=== PATIENT | female | born 1990 | race African-American/Black ===

== ENCOUNTER 2019-07-10 16:40 | Inpatient (IN) | payer MEDICAID ==
[~2019-07-10] VITALS: Ht 149.9 cm; Wt 57.7 kg
[2019-07-10] MEDS ORDERED: QUET200T PO (17:02)
[2019-07-10] MEDS ORDERED: SERT100T12 PO (17:02)
[2019-07-10] MEDS ORDERED: HALO5TAB2 PO (17:02)
[2019-07-10 17:16] LABS: BASOPHILS % (AUTO) 1.2 % (0.0-2.0); EOSINOPHILS % (AUTO) 1.4 % (1.0-6.0); HEMOGLOBIN 14.2 g/dL (12.0-16.0); LYMPHOCYTES # (AUTO) 1.8 K/uL (1.0-4.8); LYMPHOCYTES % (AUTO) 30.6 % (22.0-44.0); MEAN CORPUSCULAR HEMOGLOBIN 31.8 pg (26.0-34.0); MEAN CORPUSCULAR HGB CONC 34.7 G/dL (31.0-37.0); MEAN CORPUSCULAR VOLUME 92 fL (80-100); MONOCYTES # (AUTO) 0.4 K/uL (0.1-1.0); MONOCYTES % (AUTO) 6.2 % (2.0-9.0); NEUTROPHILS # (AUTO) 3.5 K/uL (1.8-7.7); NEUTROPHILS % (AUTO) 60.6 % (40.0-70.0); PLATELET COUNT (AUTO) 264 K/uL (150-450); RED BLOOD CELL COUNT(AUTO) 4.46 MIL/uL (4.00-5.20); RED CELL DISTRIBUTION WIDTH 13.4 % (11.5-14.5)
[2019-07-10 17:40] LABS: ANION GAP 14 mmol/L (8-16); CALCIUM, TOTAL 8.8 mg/dL (8.8-10.5); CARBON DIOXIDE 22 mmol/L (22-29); CHLORIDE 101 mmol/L (98-107); GLOMERULAR FILTR. RATE CALC > 60 mL/min (>60); GLUCOSE,RANDOM 99 mg/dL (70-110); SODIUM SERUM 137 mmol/L (136-145); UREA NITROGEN, BLOOD 4 mg/dL (7-18)
[2019-07-10 17:44] LABS: SALICYLATE 2.4 mg/dL (2.8-20.0)
[2019-07-10 17:45] LABS: ALANINE AMINOTRANSFERASE 15 U/L (12-78); ALBUMIN 3.7 g/dL (3.4-5.0); ALKALINE PHOSPHATASE 84 U/L (46-116); ASPARTATE AMINOTRANSFERASE 18 U/L (15-37); BILIRUBIN,TOTAL 0.3 mg/dL (0.1-1.0); HCG,QUANTITATIVE < 1 mIU/mL (0-6); TOTAL PROTEIN, SERUM 7.4 g/dL (6.4-8.2)
[2019-07-10 17:49] LABS: ACETAMINOPHEN < 2 mcg/mL (10-30)
[2019-07-10] MEDS ORDERED: POTASSIUM CHLORIDE 20 MEQ ER TABLET PO ONE (18:15)
[2019-07-10] MEDS ORDERED: ZOLPIDEM TARTRATE 10 MG TABLET PO PRN (19:45)
[2019-07-10 22:09] VITALS: BP 117/73
[2019-07-10] MEDS ORDERED: INFLUENZA VIRUS VACCINE QVS 2019-20 (3YR+)/PF 60 MCG/0.5 ML SYRINGE IM ONE (22:15)
[2019-07-11 07:58] LABS: CHOL/HDL RATIO 2.1 (3.9-5.7)
[2019-07-11] MEDS: NICOTINE 14 MG/24 HOUR PATCH TD SCH (09:30)
[2019-07-11 10:07] VITALS: BP 104/60
[2019-07-11 16:31] VITALS: BP 108/74
[2019-07-11] MEDS: HALOPERIDOL 5 MG TABLET PO PRN (19:56)
[2019-07-11] MEDS: LORazepam 2 MG TABLET PO PRN (19:56)
[2019-07-11] MEDS ORDERED: PARoxetine HCL 20 MG TABLET PO SCH (21:00)
[2019-07-11] MEDS: QUEtiapine FUMARATE 200 MG TABLET PO SCH (21:29)
[2019-07-11] MEDS: PRAZOSIN HCL 1 MG CAPSULE PO SCH (21:29)
[2019-07-12 09:14] VITALS: BP 99/62
[2019-07-12] MEDS: NICOTINE 14 MG/24 HOUR PATCH TD SCH (09:40)
[2019-07-12] MEDS: SERTRALINE HCL 100 MG TABLET PO SCH (09:40)
[2019-07-12] MEDS: PRAZOSIN HCL 1 MG CAPSULE PO SCH (20:12)
[2019-07-12] MEDS: QUEtiapine FUMARATE 200 MG TABLET PO SCH (20:12)
[2019-07-12 21:09] VITALS: BP 100/60
[2019-07-12] MEDS: LORazepam 2 MG TABLET PO PRN (22:14)
[2019-07-12] MEDS: HALOPERIDOL 5 MG TABLET PO PRN (22:14)
[2019-07-13 08:50] VITALS: BP 94/59
[2019-07-13] MEDS: SERTRALINE HCL 100 MG TABLET PO SCH (09:37)
[2019-07-13] MEDS: NICOTINE 14 MG/24 HOUR PATCH TD SCH (09:38)
[2019-07-13] MEDS: QUEtiapine FUMARATE 200 MG TABLET PO SCH (20:58)
[2019-07-13] MEDS: PRAZOSIN HCL 1 MG CAPSULE PO SCH (20:59)
[2019-07-13 21:36] VITALS: BP 102/47
[2019-07-14 08:50] VITALS: BP 92/58
[2019-07-14] MEDS: NICOTINE 14 MG/24 HOUR PATCH TD SCH (09:03)
[2019-07-14] MEDS: SERTRALINE HCL 100 MG TABLET PO SCH (09:03)
[2019-07-14] MEDS: OMEPRAZOLE 20 MG CAPSULE PO SCH (10:29)
[2019-07-14] MEDS: LORazepam 2 MG TABLET PO PRN (13:45)
[2019-07-14] MEDS: HALOPERIDOL 5 MG TABLET PO PRN (13:45)
[2019-07-14 16:45] VITALS: BP 105/65
[2019-07-14] MEDS: QUEtiapine FUMARATE 200 MG TABLET PO SCH (21:27)
[2019-07-14] MEDS: PRAZOSIN HCL 1 MG CAPSULE PO SCH (21:27)
[2019-07-15 08:48] VITALS: BP 97/66
[2019-07-15] MEDS: PRAZOSIN HCL 1 MG CAPSULE PO SCH (09:46)
[2019-07-15] MEDS: OMEPRAZOLE 20 MG CAPSULE PO SCH (09:46)
[2019-07-15] MEDS: SERTRALINE HCL 100 MG TABLET PO SCH (09:46)
[2019-07-15] MEDS: NICOTINE 21 MG/24 HOUR PATCH TD SCH (09:49)
[2019-07-15] MEDS: HALOPERIDOL 5 MG TABLET PO PRN (10:21)
[2019-07-15] MEDS: LORazepam 2 MG TABLET PO PRN (10:22)
[2019-07-15 18:45] VITALS: BP 93/67
[2019-07-15] MEDS: QUEtiapine FUMARATE 200 MG TABLET PO SCH (20:37)
[2019-07-16 08:47] VITALS: BP 137/85
[2019-07-16] MEDS: SERTRALINE HCL 100 MG TABLET PO SCH (10:24)
[2019-07-16] MEDS: NICOTINE 21 MG/24 HOUR PATCH TD SCH (10:24)
[2019-07-16] MEDS: OMEPRAZOLE 20 MG CAPSULE PO SCH (10:24)
[2019-07-16] MEDS: LORazepam 2 MG TABLET PO PRN (12:55)
[2019-07-16 16:00] VITALS: BP 122/74
[2019-07-16] MEDS: HALOPERIDOL 5 MG TABLET PO PRN (16:02)
[2019-07-16] MEDS: QUEtiapine FUMARATE 200 MG TABLET PO SCH (20:31)
[2019-07-16] MEDS: PRAZOSIN HCL 1 MG CAPSULE PO SCH (20:31)
[2019-07-17 04:38] VITALS: BP 121/69
[2019-07-17 06:39] VITALS: BP 117/77
[2019-07-17] MEDS: LORazepam 2 MG TABLET PO PRN (06:39)
[2019-07-17] MEDS: HALOPERIDOL 5 MG TABLET PO PRN (06:40)
[2019-07-17] MEDS: OMEPRAZOLE 20 MG CAPSULE PO SCH (08:44)
[2019-07-17] MEDS: NICOTINE 21 MG/24 HOUR PATCH TD SCH (08:44)
[2019-07-17] MEDS: SERTRALINE HCL 100 MG TABLET PO SCH (08:45)
[2019-07-17 09:28] VITALS: BP 113/83
[2019-07-17] MEDS ORDERED: PRAZ1 PO (09:28)
== END 2019-07-17 11:45 | disposition home or self-care (01) | DRG 885 ==
LOC: EMS 16:40 → 3EI 21:00 → EDBD 21:00 → EMS 21:41
PROVIDERS: ADMIT Psychiatry & Neurology Psychiatry; ATTEND Psychiatry & Neurology Psychiatry
DX: F31.30 Bipolar disorder, current episode depressed, mild or moderate severity, unspecified (principal); E87.6 Hypokalemia; F10.10 Alcohol abuse, uncomplicated; Z71.41 Alcohol abuse counseling and surveillance of alcoholic; F15.90 Other stimulant use, unspecified, uncomplicated; F25.9 Schizoaffective disorder, unspecified; F41.9 Anxiety disorder, unspecified; Z91.19 Patient's noncompliance with other medical treatment and regimen; T50.902A Poisoning by unspecified drugs, medicaments and biological substances, intentional self-harm, initial encounter; Z28.21 Immunization not carried out because of patient refusal
CPT/HCPCS: 93005; G0480; G0481

== ENCOUNTER 2019-08-25 10:55 | Emergency (ER) | payer MEDICAID, OTHER ==
[~2019-08-25] VITALS: Ht 152.4 cm; Wt 59.1 kg
[~2019-08-25 10:55] MED LIST: PRAZ1 PO; QUET200T PO; SERT100T12 PO
[2019-08-25] MEDS ORDERED: ALBUTEROL SULFATE 2.5 MG/0.5 ML NEB SOLUTION NEB ONE (12:15)
[2019-08-25] MEDS ORDERED: IPRATROPIUM BROMIDE 0.5 MG/2.5 ML NEB SOLUTION NEB ONE (12:15)
[2019-08-25] MEDS ORDERED: ONDANSETRON HCL 4 MG TABLET PO ONE (12:30)
[2019-08-25] MEDS ORDERED: ACETAMINOPHEN 500 MG TABLET PO ONE (12:30)
[2019-08-25 14:07] LABS: INFLUENZA TYPE A NEGATIVE FOR TYPE A (NEGATIVE); INFLUENZA TYPE B NEGATIVE FOR TYPE B (NEGATIVE)
[2019-08-25 14:52] VITALS: BP 115/58
== END 2019-08-25 14:54 | disposition home or self-care (01) ==
LOC: EMS 10:57
DX: J06.9 Acute upper respiratory infection, unspecified (principal); J45.909 Unspecified asthma, uncomplicated; F31.9 Bipolar disorder, unspecified; F12.90 Cannabis use, unspecified, uncomplicated; F15.90 Other stimulant use, unspecified, uncomplicated; Z20.828 Contact with and (suspected) exposure to other viral communicable diseases; Z79.899 Other long term (current) drug therapy; Z88.0 Allergy status to penicillin; Z88.8 Allergy status to other drugs, medicaments and biological substances
CPT/HCPCS: 87635; 87804; 94640; 99283; Q0162

== ENCOUNTER 2019-09-18 10:19 | Emergency (ER) | payer OTHER ==
[~2019-09-18] VITALS: Ht 149.9 cm; Wt 61.4 kg
[2019-09-18] MEDS ORDERED: HALO2 PO (10:29)
[2019-09-18] MEDS ORDERED: ACETAMINOPHEN 500 MG TABLET PO ONE (11:00)
[2019-09-18 11:24] VITALS: BP 103/71
== END 2019-09-18 11:41 | disposition home or self-care (01) ==
LOC: EMS 10:20
DX: R07.89 Other chest pain (principal); F31.9 Bipolar disorder, unspecified; F41.9 Anxiety disorder, unspecified; J45.909 Unspecified asthma, uncomplicated; F12.90 Cannabis use, unspecified, uncomplicated; F15.90 Other stimulant use, unspecified, uncomplicated; F17.210 Nicotine dependence, cigarettes, uncomplicated; Z88.0 Allergy status to penicillin; Z88.1 Allergy status to other antibiotic agents; Z91.018 Allergy to other foods; Z79.899 Other long term (current) drug therapy

== ENCOUNTER 2021-04-12 22:18 | Inpatient (IN) | payer MEDICAID, OTHER ==
[~2021-04-12] VITALS: Ht 149.9 cm; Wt 66.2 kg
[~2021-04-12 22:18] MED LIST changes: +HALO2 PO; -PRAZ1 PO; +SERT-162 PO; -SERT100T12 PO
[2021-04-13] MEDS ORDERED: LAMO25TA25 PO (00:04)
[2021-04-13] MEDS ORDERED: HALO10 PO (00:06)
[2021-04-13] MEDS ORDERED: TRAZ150T80 PO (00:06)
[2021-04-13] MEDS ORDERED: OLANZapine 5 MG RAPDIS TABLET PO PRN (00:15)
[2021-04-13] MEDS ORDERED: ZOLPIDEM TARTRATE 10 MG TABLET PO PRN (00:15)
[2021-04-13 01:47] LABS: BASOPHILS % (AUTO) 1.1 % (0.0-2.0); EOSINOPHILS % (AUTO) 4.6 % (1.0-6.0); HEMATOCRIT 39.3 % (36-46); HEMOGLOBIN 13.5 g/dL (12.0-16.0); LYMPHOCYTES # (AUTO) 2.4 K/uL (1.0-4.8); LYMPHOCYTES % (AUTO) 37.3 % (22.0-44.0); MEAN CORPUSCULAR HEMOGLOBIN 31.1 pg (26.0-34.0); MEAN CORPUSCULAR HGB CONC 34.3 G/dL (31.0-37.0); MEAN CORPUSCULAR VOLUME 91 fL (80-100); MONOCYTES # (AUTO) 0.5 K/uL (0.1-1.0); MONOCYTES % (AUTO) 7.6 % (2.0-9.0); NEUTROPHILS # (AUTO) 3.2 K/uL (1.8-7.7); NEUTROPHILS % (AUTO) 49.4 % (40.0-70.0); PLATELET COUNT (AUTO) 221 K/uL (150-450); RED BLOOD CELL COUNT(AUTO) 4.33 MIL/uL (4.00-5.20)
[2021-04-13 01:54] LABS: ANION GAP 7 mmol/L (8-16); CALCIUM, TOTAL 8.8 mg/dL (8.8-10.5); CARBON DIOXIDE 24 mmol/L (22-29); CHLORIDE 108 mmol/L (98-107); CREATININE 0.87 mg/dL (0.60-1.30); GLOMERULAR FILTR. RATE CALC > 60 mL/min (>60); GLUCOSE,RANDOM 95 mg/dL (70-110); POTASSIUM 3.8 mmol/L (3.5-5.1); SODIUM SERUM 139 mmol/L (136-145); UREA NITROGEN, BLOOD 12 mg/dL (7-18)
[2021-04-13 01:58] LABS: SALICYLATE 4.2 mg/dL (2.8-20.0)
[2021-04-13 02:00] LABS: ALANINE AMINOTRANSFERASE 15 U/L (12-78); ALBUMIN 3.5 g/dL (3.4-5.0); ALKALINE PHOSPHATASE 78 U/L (46-116); ASPARTATE AMINOTRANSFERASE 12 U/L (15-37); BILIRUBIN,TOTAL 0.3 mg/dL (0.1-1.0); TOTAL PROTEIN, SERUM 7.2 g/dL (6.4-8.2)
[2021-04-13 02:02] LABS: ACETAMINOPHEN < 2 mcg/mL (10-30)
[2021-04-13 02:02] LABS: COVID AG,FIA SOURCE NASOPHARYNGEAL
[2021-04-13 02:15] LABS: AMPHET/METH SCREEN,URINE NEGATIVE (NEGATIVE); BARBITURATE SCREEN, URINE NEGATIVE (NEGATIVE); BENZODIAZEPINES SCREEN,URINE NEGATIVE (NEGATIVE); CANNABINOID SCREEN,URINE POSITIVE (NEGATIVE); COCAINE SCREEN,URINE NEGATIVE (NEGATIVE); METHADONE SCREEN, URINE NEGATIVE (NEGATIVE); OPIATE SCREEN,URINE NEGATIVE (NEGATIVE)
[2021-04-13 02:16] LABS: PHENCYCLIDINE SCREEN,URINE NEGATIVE (NEGATIVE)
[2021-04-13 03:06] LABS: APPEARANCE,URINE CLEAR (CLEAR); BILIRUBIN,URINE NEGATIVE (NEGATIVE); GLUCOSE, URINE (UA) NEGATIVE (NEGATIVE); KETONES,URINE NEGATIVE (NEGATIVE); LEUKOCYTE ESTERASE ,URINE NEGATIVE (NEGATIVE); NITRATE,URINE NEGATIVE (NEGATIVE); OCCULT BLOOD,URINE NEGATIVE (NEGATIVE); PROTEIN,URINE NEGATIVE (NEGATIVE); UROBILINOGEN,URINE 0.2 mg/dL (<=1.0)
[2021-04-13 03:35] LABS: HCG,QUANTITATIVE < 1 mIU/mL (0-6)
[2021-04-13 04:18] VITALS: BP 143/96
[2021-04-13 08:00] VITALS: BP 97/58
[2021-04-13] MEDS ORDERED: PROMETHAZINE HCL 25 MG TABLET PO PRN (08:45)
[2021-04-13] MEDS ORDERED: PALIPERIDONE PALMITATE 234 MG/1.5 ML SYRINGE IM ONE (08:45)
[2021-04-13] MEDS ORDERED: MAG HYDROX/AL HYDROX/SIMETH ES 30 ML SUSPENSION UDCUP PO PRN (08:45)
[2021-04-13] MEDS ORDERED: HydrOXYzine PAMOATE 50 MG CAPSULE PO PRN (08:45)
[2021-04-13] MEDS ORDERED: TUBERCULIN, PURIFIED PROTEIN DERIVATIVE 5 TU/0.1 ML SYRINGE ID ONE (08:45)
[2021-04-13] MEDS ORDERED: GuaiFENesin/D-METHORPHAN [SUGAR-FREE] 200-20MG/10 ML SYRUP UDCUP PO PRN (08:45)
[2021-04-13] MEDS ORDERED: LOPERAMIDE HCL 2 MG CAPSULE PO PRN (08:45)
[2021-04-13] MEDS ORDERED: MAGNESIUM HYDROXIDE SUSPENSION 30 ML UDCUP PO PRN (08:45)
[2021-04-13] MEDS ORDERED: ACETAMINOPHEN 325 MG TABLET PO PRN (08:45)
[2021-04-13] MEDS: OMEGA-3/DHA/EPA/FISH OIL 1,000 MG CAPSULE PO SCH (09:00)
[2021-04-13] MEDS: THIAMINE 100 MG TABLET PO SCH ×2 (09:00→16:04)
[2021-04-13] MEDS: FOLIC ACID 1 MG TABLET PO SCH (09:00)
[2021-04-13] MEDS: MULTIVITAMINS WITH MINERALS, THERAPEUTIC TABLET PO SCH (09:00)
[2021-04-13] MEDS: NALTREXONE HCL 50 MG TABLET PO SCH (09:00)
[2021-04-13] MEDS: FLUoxetine HCL 20 MG CAPSULE PO SCH (10:54)
[2021-04-13] MEDS: LORazepam 2 MG TABLET PO PRN (16:04)
[2021-04-13 16:55] VITALS: BP 117/68
[2021-04-13] MEDS ORDERED: OLANZapine 5 MG RAPDIS TABLET PO SCH (21:00)
[2021-04-13] MEDS ORDERED: MELATONIN 5 MG TABLET PO SCH (21:00)
[2021-04-14 05:27] LABS: HEMOGLOBIN A1C 5.8 % (3.8-5.6)
[2021-04-14 05:36] LABS: CHOL/HDL RATIO 2.7 (3.9-5.7); CHOLESTEROL 161 mg/dL (131-200); FREE T4 (FREE THYROXINE) 1.34 ng/dL (0.76-1.46); HDL CHOLESTEROL 59 mg/dL (40-60); LDL CHOL (CALC.) 84 mg/dL (0-130); TRIGLYCERIDES 90 mg/dL (15-150)
[2021-04-14 08:00] VITALS: BP 136/79
[2021-04-14] MEDS: FOLIC ACID 1 MG TABLET PO SCH (08:18)
[2021-04-14] MEDS: FLUoxetine HCL 20 MG CAPSULE PO SCH (08:18)
[2021-04-14] MEDS: OMEGA-3/DHA/EPA/FISH OIL 1,000 MG CAPSULE PO SCH (08:18)
[2021-04-14] MEDS: NALTREXONE HCL 50 MG TABLET PO SCH (08:18)
[2021-04-14] MEDS: MULTIVITAMINS WITH MINERALS, THERAPEUTIC TABLET PO SCH (08:18)
[2021-04-14] MEDS: THIAMINE 100 MG TABLET PO SCH ×2 (08:18→16:38)
[2021-04-14 16:30] VITALS: BP 103/67
[2021-04-14] MEDS: LORazepam 2 MG TABLET PO PRN (16:38)
[2021-04-14] MEDS ORDERED: HALOPERIDOL 10 MG TABLET PO SCH (17:00)
[2021-04-14] MEDS ORDERED: HALOPERIDOL 5 MG TABLET PO PRN ×2 (17:00→19:00)
[2021-04-14] MEDS ORDERED: HALOPERIDOL 10 MG TABLET PO ONE (19:00)
[2021-04-14] MEDS ORDERED: MELATONIN 5 MG TABLET PO ONE (19:00)
[2021-04-14] MEDS ORDERED: LamoTRIgine 25 MG TABLET PO ONE (19:00)
[2021-04-14] MEDS ORDERED: LamoTRIgine 25 MG TABLET PO SCH (21:00)
[2021-04-15] MEDS: FOLIC ACID 1 MG TABLET PO SCH (10:02)
[2021-04-15] MEDS: MULTIVITAMINS WITH MINERALS, THERAPEUTIC TABLET PO SCH (10:02)
[2021-04-15] MEDS: THIAMINE 100 MG TABLET PO SCH ×2 (10:02→16:04)
[2021-04-15] MEDS ORDERED: PROZ20 PO (11:26)
[2021-04-15] MEDS ORDERED: OMEG-135 PO (11:26)
[2021-04-15] MEDS ORDERED: LAMO25TA66 PO (11:26)
[2021-04-15] MEDS ORDERED: NALT50TA PO (11:26)
[2021-04-15] MEDS ORDERED: HALO10 PO (11:26)
[2021-04-15] MEDS ORDERED: MELA5TAB40 PO (11:26)
[2021-04-15] MEDS ORDERED: INFLUENZA VIRUS VACCINE QVS 2021-22 (6MO+)/PF 60 MCG/0.5 ML SYRINGE IM. ONE (13:15)
[2021-04-15] MEDS ORDERED: PNEUMOCOCCAL VACCINE POLYVALENT 0.5 ML VIAL [PPSV23] IM. ONE (13:15)
[2021-04-15 16:23] VITALS: BP 133/77
[2021-04-15] MEDS ORDERED: HALOPERIDOL 10 MG TABLET PO SCH (18:00)
[2021-04-15] MEDS ORDERED: FLUoxetine HCL 20 MG CAPSULE PO SCH (18:00)
[2021-04-15] MEDS ORDERED: OMEGA-3/DHA/EPA/FISH OIL 1,000 MG CAPSULE PO SCH (18:00)
[2021-04-15] MEDS ORDERED: MELATONIN 5 MG TABLET PO SCH (18:00)
[2021-04-15] MEDS ORDERED: LamoTRIgine 25 MG TABLET PO SCH (18:00)
[2021-04-15] MEDS ORDERED: NALTREXONE HCL 50 MG TABLET PO SCH (18:00)
[2021-04-16 07:10] VITALS: BP 146/82
[2021-04-16] MEDS: LORazepam 2 MG TABLET PO PRN (07:15)
[2021-04-16] MEDS: FOLIC ACID 1 MG TABLET PO SCH (09:39)
[2021-04-16] MEDS: THIAMINE 100 MG TABLET PO SCH (09:39)
[2021-04-16] MEDS: MULTIVITAMINS WITH MINERALS, THERAPEUTIC TABLET PO SCH (09:39)
[2021-04-17] MEDS ORDERED: PALIPERIDONE PALMITATE 156 MG/ML SYRINGE IM ONE (09:00)
== END 2021-04-16 11:40 | disposition home or self-care (01) | DRG 750 ==
LOC: EMS 22:18 → 3EI 04-13 03:34
PROVIDERS: ADMIT Psychiatry & Neurology Psychiatry; ATTEND Psychiatry & Neurology Psychiatry
DX: F20.0 Paranoid schizophrenia (principal); R45.851 Suicidal ideations; Z91.19 Patient's noncompliance with other medical treatment and regimen; F15.90 Other stimulant use, unspecified, uncomplicated; F17.210 Nicotine dependence, cigarettes, uncomplicated; F31.9 Bipolar disorder, unspecified; F41.0 Panic disorder [episodic paroxysmal anxiety]; G47.00 Insomnia, unspecified; J44.9 Chronic obstructive pulmonary disease, unspecified; Z20.822 Contact with and (suspected) exposure to COVID-19; Z55.9 Problems related to education and literacy, unspecified; Z59.9 Problem related to housing and economic circumstances, unspecified; Z63.9 Problem related to primary support group, unspecified; Z65.3 Problems related to other legal circumstances; Z88.0 Allergy status to penicillin; Z88.8 Allergy status to other drugs, medicaments and biological substances
CPT/HCPCS: 80053; 80061; 81003; 83036; 84439; 84443; 84702; 85025; 86592; 99285; G0480; G0481; Q9967

== ENCOUNTER 2022-08-19 18:24 | Emergency (ER) | payer MEDICAID, OTHER ==
[~2022-08-19] VITALS: Ht 149.9 cm; Wt 63.6 kg
[~2022-08-19 18:24] MED LIST changes: +HALO10TA21 PO; -HALO2 PO; +LAMO25TA66 PO; +MELA5TAB40 PO; +NALT50TA PO; +OMEG-135 PO; +PROZ20 PO; -QUET200T PO; -SERT-162 PO
[2022-08-19] MEDS ORDERED: QUET50TA PO (18:32)
[2022-08-19] MEDS ORDERED: BUSP10TA23 PO (18:32)
[2022-08-19] MEDS ORDERED: HALO10TA21 PO (18:32)
[2022-08-19] MEDS ORDERED: SERT-158 PO (18:32)
[2022-08-19] MEDS ORDERED: [UNRECOGNIZED DRUG - OTHER] PO (18:33)
[2022-08-19 19:17] LABS: BASOPHILS % (AUTO) 0.8 % (0.0-2.0); EOSINOPHILS % (AUTO) 2.7 % (1.0-6.0); HEMATOCRIT 39.1 % (36-46); LYMPHOCYTES # (AUTO) 3.2 K/uL (1.0-4.8); LYMPHOCYTES % (AUTO) 37.8 % (22.0-44.0); MEAN CORPUSCULAR HEMOGLOBIN 28.4 pg (26.0-34.0); MEAN CORPUSCULAR HGB CONC 33.2 G/dL (31.0-37.0); MEAN CORPUSCULAR VOLUME 86 fL (80-100); MONOCYTES # (AUTO) 0.5 K/uL (0.1-1.0); MONOCYTES % (AUTO) 5.9 % (2.0-9.0); NEUTROPHILS # (AUTO) 4.4 K/uL (1.8-7.7); NEUTROPHILS % (AUTO) 52.8 % (40.0-70.0); PLATELET COUNT (AUTO) 267 K/uL (150-450); RED BLOOD CELL COUNT(AUTO) 4.56 MIL/uL (4.00-5.20); RED CELL DISTRIBUTION WIDTH 14.8 % (11.5-14.5)
[2022-08-19 19:26] LABS: APPEARANCE,URINE HAZY (CLEAR); BILIRUBIN,URINE NEGATIVE (NEGATIVE); GLUCOSE, URINE (UA) NEGATIVE (NEGATIVE); KETONES,URINE NEGATIVE (NEGATIVE); LEUKOCYTE ESTERASE ,URINE TRACE (NEGATIVE); NITRATE,URINE NEGATIVE (NEGATIVE); OCCULT BLOOD,URINE NEGATIVE (NEGATIVE); PROTEIN,URINE NEGATIVE (NEGATIVE); SPECIFIC GRAVITIY, URINE 1.023 (1.003-1.030); UROBILINOGEN,URINE <=1.0 mg/dL (<=1.0)
[2022-08-19 19:38] LABS: CHLORIDE 104 mmol/L (98-107); POTASSIUM 3.7 mmol/L (3.5-5.1); SODIUM SERUM 136 mmol/L (136-145)
[2022-08-19 19:45] LABS: ANION GAP 9 mmol/L (8-16); CARBON DIOXIDE 23 mmol/L (22-29)
[2022-08-19 19:48] LABS: BACTERIA,URINE None Seen /HPF (None Seen); RBC,URINE None Seen /HPF (0-2)
[2022-08-19] MEDS ORDERED: ACETAMINOPHEN 325 MG TABLET PO ONE (20:00)
[2022-08-19 20:02] LABS: ALANINE AMINOTRANSFERASE 13 U/L (12-78); ALBUMIN 3.9 g/dL (3.4-5.0); ALKALINE PHOSPHATASE 82 U/L (46-116); ASPARTATE AMINOTRANSFERASE 17 U/L (15-37); BILIRUBIN,TOTAL 0.1 mg/dL (0.1-1.0); CALCIUM, TOTAL 8.8 mg/dL (8.8-10.5); CREATININE 0.87 mg/dL (0.60-1.30); GLOMERULAR FILTR. RATE CALC > 60 mL/min (>60); GLUCOSE,RANDOM 94 mg/dL (70-110); TOTAL PROTEIN, SERUM 7.6 g/dL (6.4-8.2); UREA NITROGEN, BLOOD 9 mg/dL (7-18)
[2022-08-19 20:11] VITALS: BP 131/74
[2022-08-19 20:30] LABS: HCG,QUANTITATIVE < 1 mIU/mL (0-6)
== END 2022-08-19 20:40 | disposition home or self-care (01) ==
LOC: EMS 18:28
DX: O26.891 Other specified pregnancy related conditions, first trimester (principal); R10.2 Pelvic and perineal pain; F41.9 Anxiety disorder, unspecified; J45.909 Unspecified asthma, uncomplicated; F31.9 Bipolar disorder, unspecified; F20.9 Schizophrenia, unspecified; F17.210 Nicotine dependence, cigarettes, uncomplicated; F12.90 Cannabis use, unspecified, uncomplicated; F15.90 Other stimulant use, unspecified, uncomplicated; F19.90 Other psychoactive substance use, unspecified, uncomplicated; Z98.890 Other specified postprocedural states; Z88.0 Allergy status to penicillin; Z88.8 Allergy status to other drugs, medicaments and biological substances; Z3A.01 Less than 8 weeks gestation of pregnancy
CPT/HCPCS: 76801; 76817; 80053; 81001; 84702; 85025; 99284